=== PATIENT | female | born 1960 | race Caucasian/White ===

== ENCOUNTER 2018-07-07 10:21 | Observation (INO) ==
--- NOTE | 2018-07-07 12:20 | History & Physical Bridge Note ---
Date of Service July 07, 2018 History & Physical Bridge Note I have examined the patient, reviewed the History & Physical and in the interval since the performance of the History & Physical I have noted the following changes of clinical significance: no changes noted
--- NOTE | 2018-07-07 12:21 | Pre Anesthesia Assessment ---
Date of Service July 07, 2018 Pre Sedation Assessment Vital Signs Temp Pulse Resp BP Pulse Ox 07/07/18 10:54 36.8 C 65 20 105/77 96 Cardiovascular + regular rate Respiratory + respiratory effort normal Pre-Sedation Airway Assessment Smoking Status: Current every day smoker Hx Sleep Apnea: No Hx Difficult Intubation: No Short, Thick Neck: No Thyromental Distance: > or= 3.5 Finger Breadths Oral Cavity: + WNL Mallampati Class: III ASA: ASA2 NPO Status Date of Last Intake of Fluids: 07/14/18 Date of Last Intake of Solid Food: 07/07/18 Procedure Planning Contraindications for Sedation: none Current Medications Reviewed: Yes Notes The planned sedation has been discussed with the patient. Informed Consent was obtained. I have identified the patient, determined the appropriateness of sedation and have assessed the patient immediately prior to the procedure. All medicine(s) and interventions are by my order.
[2018-07-07] MEDS ORDERED: MIDAZOLAM HCL 5 MG/ML 1 ML VIAL ONE ×2 (12:23→13:02)
[2018-07-07] MEDS ORDERED: fentaNYL citrate 100 MCG/2 ML VIAL ONE ×2 (12:23→12:57)
[2018-07-07] MEDS ORDERED: DiphenhydrAMINE HCL 50 MG/ML VIAL ONE (13:14)
[2018-07-07] MEDS ORDERED: ISOPROTERENOL 200 MCG / 50ML D5W IV ONE (13:24)
--- NOTE | 2018-07-07 15:14 | Post Operative Brief Note ---
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
[2018-07-07] MEDS ORDERED: ACETAMINOPHEN 325 MG TAB PO PRN (15:15)
[2018-07-07] MEDS ORDERED: clonazePAM 1 MG TAB PO PRN (15:15)
--- NOTE | 2018-07-07 16:26 | Procedure Note ---
Procedure Note Date of Service July 07, 2018 Note Procedure performed: Ablation of SVT, arrhythmia induction on and off isoproterenol using programmed stimulation, mapping of tachycardia sites using roving catheter, ultrasound-guided vascular access, complete electrophysiologic testing including pacing from the left atrium via the coronary sinus Staff button spindler: Jeremias Melendrez MD Indication: The patient is a 57-year-old woman with a history of documented SVT. Due to recurrent nature of her symptoms despite medical therapy she has requested an electrophysiologic study and possible catheter ablation of SVT. Procedure in detail: The patient was informed of the risks benefits and alternatives to the intended procedure. She understood and wished to proceed. She was taken to the electrophysiology suite in a fasting state. Conscious sedation was administered per protocol in the patient was monitored electrocardiographically throughout today's procedure. The right internal jugular vein and right femoral veins were prepped and draped in usual sterile fashion. These areas were anesthetized using subcutaneous administration of lidocaine solution. The right internal jugular vein was subsequently access using modified Selinger technique under ultrasound guidance and a 6 Malaysian venous sheath was placed at the site over guidewire. The right femoral vein was then accessed 3 times using modified Seldinger technique and sheaths were placed over guidewires at this site. The sheaths were used to facilitate passage of the EP catheters to the respective chambers under fluoroscopic guidance. This included right ventricular, his bundle and coronary sinus catheters. The patient's baseline conduction system was characterized. In attempt to induce an arrhythmia patient was placed on isoproterenol and program stimulation performed. Once the tachycardia was induced, the elements of the tachycardia were identified. At this point a radiofrequency ablation catheter was advanced to the area of interest and tachycardia sites mapped. Radiofrequency lesions were then placed in a pouch temperature controlled mode until the tachycardia was no longer inducible. Repeat electrophysiologic testing including program stimulation on and off isoproterenol was then performed in attempt to induce an arrhythmia. At the conclusion of the case the patient's baseline conduction system was once again characterize prior to removal of the sheaths and catheters. Hemostasis was achieved at the access sites using manual pressure. The patient tolerated the procedure well. There were no immediate complications. Findings: Baseline intracardiac intervals Cycle length in the atrium 924 milliseconds Cycle length in the ventricle 922 milliseconds IA interval 142 milliseconds QRS duration 82 milliseconds QT interval 424 milliseconds QTC 442 H interval 98 milliseconds HV interval 50 milliseconds Av Wenckebach occurred at 390 milliseconds The effective refractory period of the fast pathway was 350 milliseconds The effective refractory period of the slow pathway was 330 milliseconds Retrograde Wenckebach was 430 milliseconds Retrograde AV leatha ERP was 410 milliseconds. 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 A 4 millimeter 7 Malaysian radiofrequency ablation catheter was advanced to the area of the slow pathway. Multiple lesions were placed in a temperature controlled mode. Multiple junctional beats were obtained at different sites with good power and temperature. There were no episodes of AV block. Post ablation intervals: Cycle length in the atrium 712 milliseconds Cycle length in the ventricle 708 milliseconds IA interval 130 milliseconds QRS duration 94 milliseconds QT interval 392 milliseconds Corrected QT 466 H interval 84 milliseconds HV interval 48 milliseconds Av Wenckebach occurred at 330 milliseconds Effective fracture. The fast pathway was 330 milliseconds Effective fracture. The slow pathway was 240 milliseconds Subsequent to ablation there was evidence of slow pathway conduction with single echo beats On isoproterenol with programmed stimulation including up to 2 extrastimuli there was no sustained arrhythmia Impression: Modification of the slow inputs to the AV node rendering typical slow fast AVNRT noninducible Persistent slow pathway conduction with single echo beats at the conclusion of the case Close proximity of the slow pathway to the his bundle catheter on fluoroscopy Normal baseline conduction intervals No evidence of accessory pathway conduction
[2018-07-07] MEDS: OXYCODONE HCL IR 5 MG TAB (IMMEDIATE RELEASE) PO PRN ×2 (17:23→22:58)
[2018-07-08 07:02] VITALS: BP 137/93; TEMP 98.1; O2SAT 94
[2018-07-08 09:55] VITALS: PULSE 72
--- NOTE | 2018-07-09 12:03 | Discharge Summary ---
Date of Service July 27, 2018 Admission HPI Per Admitting Provider Patient with history of SVT Discharge Data Procedures Performed Operation Date: 07/07/18 12:00 Actual Procedures p EPS + Ablation for SVT Flutter - Reji Melendrez MD s LA Pacing (Add-On) - Reji Melendrez MD s Catheter Mapping - MD saranya Choudhary Ultrasound Vascular Access - MD saranya Choudhary Drug Stimulation - Reji Melendrez MD
--- NOTE | 2018-07-26 13:45 | Discharge Summary ---
Date of Service July 07, 2018 Admission HPI Patient with history of SVT Principal Diagnosis Principal Diagnosis SVT Discharge Exam The time of discharge the patient was feeling well. Groin access site was free of bleeding or hematoma Discharge Data Allergies Allergy/AdvReac Type Severity Reaction Status Date / Time ketorolac Allergy Hives Verified 02/14/18 13:08 Penicillins Allergy Hives Verified 02/14/18 13:08 Procedures Performed Operation Date: 07/07/18 12:00 Actual Procedures p EPS + Ablation for SVT Flutter - MD saranya Choudhary LA Pacing (Add-On) - MD saranya Choudhary Catheter Mapping - MD saranya Choudhary Ultrasound Vascular Access - MD saranya Choudhary Drug Stimulation - Reji Melendrez MD Ordered Studies 07/07/18 06:45 EP Lab Images for PACS ONCE Hospital Course (1) SVT (supraventricular tachycardia): The patient presented to [facility] and underwent an SVT ablation on the day of admission. There are no immediate complications. The patient stayed overnight by her choice. The following morning she was ambulatory without complication. No arrhythmias were seen subsequent to ablation. Total Time Total Time Spent Total Time Spent (In Minutes): 10 Discharge Plan Discharge Items Patient Disposition: Home - Self-Care Reason For Visit: ABLATION Discharge Diagnosis: SVT Discharge Goals: Therapeutic intervention Activity: Per 'Additional Instructions' section Activity Comment: Avoid lifting over 10# or straining for 5 days Lifting: No more than 10 pounds Bathing: No limitations Sexual Activity: When tolerated Driving/Machine Use: Resume 1 day after discharge Non-emergency contact: Wick And Base Assembler Call non-emergency contact if: your wound has increased redness Follow-up/Referrals: Gopi Jack III, CRNP [Primary Care Provider] - Diet: Regular Addtl Provider Instructions: none Prescriptions: Continued clonazepam 1 mg Tablet 1 mg PO DAILY PRN (Reason: Anxiety) RF: 0 fluoxetine [Prozac] 40 mg Capsule 40 mg PO QAM RF: 0 hydrochlorothiazide 12.5 mg Tablet 12.5 mg PO QAM RF: 0 acetaminophen [Tylenol Extra Strength] 500 mg tablet 1,000 mg PO Q8H PRN (Reason: pain) Qty: 60 RF: 0 ranitidine HCl 150 mg Tablet 150 mg PO BID Qty: 60 RF: 3 Discontinued diltiazem HCl 180 mg Capsule,Ext.Rel 24h Degradable 180 mg PO QAM RF: 0 Stand-Alone Forms: [facility] Discharge Orders: Discharge Order (Routine); Ordered 07/08/18 Ordered By: Reji Melendrez Admission Data Admit Date/Time: 07/07/18 15:15 Attending Provider: Reji Melendrez Admit Provider: Reji Melendrez Primary Care Provider: Gopi Jack III Service: Telemetry Other Interventions: Discharge Summary Assessment (RN) Last Done: 07/08/18 09:50 Pending Studies at Discharge: No DC Date/Time DO NOT enter until pt leaves facility: 07/08/18 10:41
== END 2018-07-08 10:41 | disposition home or self-care (01) ==
LOC: ASU 10:21 → 2S 15:15 → INTOOBSV 15:15